=== PATIENT | female | born 1995 | race African-American/Black ===

== ENCOUNTER 2022-11-15 14:30 | Inpatient (IN) | payer BC, OTHER ==
[2022-11-15] VITALS (7 sets, daily range): BP systolic 105–140; BP diastolic 73–111
[~2022-11-15] VITALS: Ht 154.9 cm; Wt 102.5 kg
[2022-11-15 15:28] LABS: Basophils # (auto) 0.1 10 ^3/uL (0-0.2); Basophils % (auto) 0.5 % (0.0-2.0); Eosinophils # (auto) 0 10 ^3/uL (0-0.8); Hematocrit 43.3 % (36.0-46.0); Hemoglobin 14.6 g/dL (12.2-16.2); Lymphocytes # (auto) 1.1 10 ^3/uL (0.4-5.4); Lymphocytes % (auto) 7.7 % (10.0-50.0); Mean Corpuscular Hemoglobin 30.8 pg (28.0-32.0); Mean Corpuscular Hgb Conc. 33.8 g/dL (32.0-36.0); Mean Corpuscular Volume 91.2 fL (80.0-100.0); Monocytes # (auto) 0.5 10 ^3/uL (0-1.3); Monocytes % (auto) 3.3 % (0.0-12.0); Neutrophils # (auto) 12.7 10 ^3/uL (1.6-8.6); Neutrophils % (auto) 88.5 % (37.0-80.0); Nucleated Red Blood Cells % 0.3 %; Red Blood Cells 4.75 10^6/uL (4.0-5.20); Red Cell Distribution Width 13.2 % (11.8-14.3); White Blood Cell 14.4 10^3/uL (4.4-10.8)
[2022-11-15] MEDS ORDERED: SODIUM CHLORIDE 0.9% 1,000 ML IV ONE (15:45)
[2022-11-15] MEDS ORDERED: NITROGLYCERIN 0.4 MG SL TAB SL ONE (15:45)
[2022-11-15 15:58] LABS: Albumin 3.8 g/dL (3.4-5.0); Calcium 8.8 mg/dL (8.5-10.1); Potassium 4.6 mmol/L (3.5-5.1)
[2022-11-15 16:03] LABS: BUN/Creatinine Ratio 12.5 (10.0-20.0); Bilirubin, Total 0.4 mg/dL (0.2-1.0)
[2022-11-15] MEDS ORDERED: HYDROcodone-ACET 5/325MG TAB PO PRN (16:30)
[2022-11-15] MEDS ORDERED: MORPHINE SULFATE INJ 2 MG/ml SYRG IV PRN (16:30)
[2022-11-15] MEDS ORDERED: HEPARIN SODIUM (PORCINE) 5000 UNITS/ML 1ML VIAL IV ONE (16:30)
[2022-11-15] MEDS ORDERED: NITROGLYCERIN 0.4 MG SL TAB SL PRN (16:30)
[2022-11-15] MEDS ORDERED: ONDANSETRON HCL 4 MG/2 ML VIAL IV PRN (16:30)
[2022-11-15] MEDS ORDERED: LIDOCAINE 2%HCL (LOCAL ANESTH.) INJ 20ML MDV ONE (16:47)
[2022-11-15] MEDS ORDERED: IODIXANOL 320MG/ML 100ML BTL IV ONE ×2 (16:47→17:49)
[2022-11-15 16:50] LABS: INR 0.94 (0.9-1.15); Partial Thromboplastin Time 27.7 sec (24.6-33.4)
[2022-11-15] MEDS ORDERED: VERAPAMIL 2.5MG/ML INJ 2ML VIAL IV ONE (16:50)
[2022-11-15] MEDS ORDERED: fentaNYL CITRATE 100 MCG/2 ML VL ONE (16:50)
[2022-11-15] MEDS ORDERED: HEPARIN SODIUM (PORCINE) 5000 UNITS/ML 1ML VIAL ONE (16:50)
[2022-11-15] MEDS ORDERED: ANGIOMAX 250 MG VIAL IV ONE (16:50)
[2022-11-15] MEDS ORDERED: SODIUM CHL 0.9% 50 ML ONE (16:51)
[2022-11-15] MEDS ORDERED: MIDAZOLAM HCL 2MG/2ML 2ml VIAL (1mg/ml) ONE (16:51)
[2022-11-15 17:10] LABS: Cholesterol 227 mg/dL (< 200)
[2022-11-15 17:12] LABS: HDL Cholesterol 53 mg/dL (40-59); LDL Cholesterol 165 mg/dL (< 100); Triglycerides 113 mg/dL (< 150)
[2022-11-15] MEDS ORDERED: ADENOSINE 6 MG/2 ML INJ IV ONE (17:33)
[2022-11-15] MEDS ORDERED: EPTIFIBATIDE INJ (2MG/ML) 10ML VIAL IV ONE ×2 (17:39→17:40)
[2022-11-15] MEDS ORDERED: TICAGRELOR 90 MG TAB ONE (17:53)
[2022-11-15] MEDS ORDERED: EPTIFIBATIDE DRIP(0.75MG/ML) 100 ML IV ONE ×2 (18:12→18:45)
[2022-11-15] MEDS ORDERED: FUROSEMIDE INJECTION 10 ML ONE (18:31)
[2022-11-15] MEDS ORDERED: FUROSEMIDE 100 MG/10ML VIAL IV ONE (18:45)
[2022-11-15] MEDS: FUROSEMIDE 40 MG/4 ML VIAL IV SCH (20:41)
[2022-11-15] MEDS: SODIUM CHLOR 0.9% PF (SALINE LOCK) 10ML VIAL/SYR IV SCH (20:45)
[2022-11-15] MEDS: MORPHINE SULFATE INJ 2 MG/ml SYRG IV PRN (20:46)
[2022-11-15] MEDS: CEFEPIME 1GM/ 50ML 50 ML IV SCH (21:15)
[2022-11-15] MEDS ORDERED: ESCI1TAB36 PO (21:52)
[2022-11-15] MEDS ORDERED: ATORVASTATIN 20 MG TAB PO SCH (22:00)
[2022-11-16 01:17] LABS: Urine Bacteria NONE SEEN /hpf (None Seen); Urine Blood Negative /uL (Negative); Urine Specific Gravity 1.016 (1.001-1.035); Urine WBC 1 /hpf (0 - 5)
[2022-11-16 02:24] LABS: Amphetamine Screen, Urine NEGATIVE (NEGATIVE); Barbiturate Scree,Urine NEGATIVE (NEGATIVE); Benzodiazephine Screen, Urine POSITIVE (NEGATIVE); Cannabinoid Screen, Urine POSITIVE (NEGATIVE); Cocaine Screen, Urine NEGATIVE (NEGATIVE); Opiate Scree,Urine NEGATIVE (NEGATIVE); Phencyclidine Screen, Urine NEGATIVE (NEGATIVE)
[2022-11-16 03:26] LABS: Alcohol, Urine < 3.0 mg/dL (0-10)
[2022-11-16] MEDS: EPTIFIBATIDE DRIP(0.75MG/ML) 100 ML IV SCH ×3 (04:27→12:09)
[2022-11-16] MEDS: MORPHINE SULFATE INJ 2 MG/ml SYRG IV PRN ×2 (04:41→23:27)
[2022-11-16 05:00] VITALS: BP 119/79
[2022-11-16 06:08] LABS: Albumin 3.7 g/dL (3.4-5.0); Calcium 8.6 mg/dL (8.5-10.1); Potassium 3.5 mmol/L (3.5-5.1)
[2022-11-16 06:12] LABS: BUN/Creatinine Ratio 16.3 (10.0-20.0); Bilirubin, Total 0.9 mg/dL (0.2-1.0); Total Protein 8.4 g/dL (6.4-8.2)
[2022-11-16] MEDS: CEFEPIME 1GM/ 50ML 50 ML IV SCH ×3 (06:43→21:14)
[2022-11-16] MEDS: SODIUM CHLOR 0.9% PF (SALINE LOCK) 10ML VIAL/SYR IV SCH ×3 (06:43→21:10)
[2022-11-16 06:56] LABS: Basophils # (auto) 0 10 ^3/uL (0-0.2); Basophils % (auto) 0.1 % (0.0-2.0); Eosinophils # (auto) 0 10 ^3/uL (0-0.8); Hematocrit 44.3 % (36.0-46.0); Hemoglobin 15.5 g/dL (12.2-16.2); Lymphocytes # (auto) 1.3 10 ^3/uL (0.4-5.4); Lymphocytes % (auto) 7.1 % (10.0-50.0); Mean Corpuscular Hemoglobin 31.6 pg (28.0-32.0); Mean Corpuscular Hgb Conc. 34.9 g/dL (32.0-36.0); Mean Corpuscular Volume 90.7 fL (80.0-100.0); Monocytes # (auto) 1.3 10 ^3/uL (0-1.3); Monocytes % (auto) 7.4 % (0.0-12.0); Neutrophils # (auto) 15.2 10 ^3/uL (1.6-8.6); Neutrophils % (auto) 85.4 % (37.0-80.0); Nucleated Red Blood Cells % 0.3 %; Red Blood Cells 4.89 10^6/uL (4.0-5.20); Red Cell Distribution Width 13.3 % (11.8-14.3); White Blood Cell 17.8 10^3/uL (4.4-10.8)
[2022-11-16 09:00] VITALS: BP 111/74
[2022-11-16] MEDS: ASPirin 81 mg TAB PO SCH (09:30)
[2022-11-16] MEDS: METOPROLOL SUCCINATE XL 50 MG TAB PO SCH (09:32)
[2022-11-16] MEDS: TICAGRELOR 90 MG TAB PO SCH ×2 (09:33→21:11)
[2022-11-16] MEDS: FUROSEMIDE 40 MG/4 ML VIAL IV SCH ×2 (09:35→21:20)
[2022-11-16] MEDS: NICOTINE 7MG/24HR TOPICAL PATCH TD SCH (09:35)
[2022-11-16 13:00] VITALS: BP 111/62
[2022-11-16 17:00] VITALS: BP 112/59
[2022-11-16] MEDS: CITALOPRAM HYDROBR 20 MG TAB PO SCH (21:11)
[2022-11-16 22:00] VITALS: BP 105/58
[2022-11-17 05:00] VITALS: BP 93/54
[2022-11-17] MEDS: CEFEPIME 1GM/ 50ML 50 ML IV SCH ×3 (05:14→22:05)
[2022-11-17] MEDS: SODIUM CHLOR 0.9% PF (SALINE LOCK) 10ML VIAL/SYR IV SCH ×3 (05:21→22:14)
[2022-11-17 09:00] VITALS: BP 107/58
[2022-11-17] MEDS: ASPirin 81 mg TAB PO SCH (10:14)
[2022-11-17] MEDS: TICAGRELOR 90 MG TAB PO SCH ×2 (10:15→22:13)
[2022-11-17] MEDS: FUROSEMIDE 40 MG/4 ML VIAL IV SCH ×2 (10:15→22:00)
[2022-11-17] MEDS: NICOTINE 7MG/24HR TOPICAL PATCH TD SCH (10:16)
[2022-11-17] MEDS: METOPROLOL SUCCINATE XL 50 MG TAB PO SCH (10:16)
[2022-11-17] MEDS: Ensure HIGH Protein Chocolate 8oz Bottle PO SCH ×2 (12:12→18:13)
[2022-11-17 13:00] VITALS: BP 115/70
[2022-11-17 17:00] VITALS: BP 98/53
[2022-11-17 20:00] VITALS: BP 100/58
[2022-11-17 22:00] VITALS: BP 100/58
[2022-11-17] MEDS: ACETAMINOPHEN 325 MG TAB PO PRN (22:12)
[2022-11-17] MEDS: CITALOPRAM HYDROBR 20 MG TAB PO SCH (22:13)
[2022-11-18] VITALS (8 sets, daily range): BP systolic 90–101; BP diastolic 54–67
[2022-11-18] MEDS: CEFEPIME 1GM/ 50ML 50 ML IV SCH ×3 (06:27→21:49)
[2022-11-18] MEDS: SODIUM CHLOR 0.9% PF (SALINE LOCK) 10ML VIAL/SYR IV SCH ×3 (06:28→21:33)
[2022-11-18] MEDS: ASPirin 81 mg TAB PO SCH (09:29)
[2022-11-18] MEDS: NICOTINE 7MG/24HR TOPICAL PATCH TD SCH (09:29)
[2022-11-18] MEDS: TICAGRELOR 90 MG TAB PO SCH ×2 (09:29→21:31)
[2022-11-18] MEDS: METOPROLOL SUCCINATE XL 50 MG TAB PO SCH (09:30)
[2022-11-18] MEDS: FUROSEMIDE 40 MG/4 ML VIAL IV SCH (09:30)
[2022-11-18] MEDS: Ensure HIGH Protein Chocolate 8oz Bottle PO SCH ×3 (09:31→18:15)
[2022-11-18 14:36] LABS: Basophils # (auto) 0.1 10 ^3/uL (0-0.2); Basophils % (auto) 0.6 % (0.0-2.0); Eosinophils # (auto) 0.2 10 ^3/uL (0-0.8); Eosinophils % (auto) 1.4 % (0.0-7.0); Hematocrit 46.6 % (36.0-46.0); Hemoglobin 15.7 g/dL (12.2-16.2); Lymphocytes # (auto) 2.7 10 ^3/uL (0.4-5.4); Lymphocytes % (auto) 25.6 % (10.0-50.0); Mean Corpuscular Hemoglobin 30.6 pg (28.0-32.0); Mean Corpuscular Hgb Conc. 33.6 g/dL (32.0-36.0); Mean Corpuscular Volume 91.2 fL (80.0-100.0); Monocytes # (auto) 0.7 10 ^3/uL (0-1.3); Monocytes % (auto) 6.7 % (0.0-12.0); Neutrophils # (auto) 6.8 10 ^3/uL (1.6-8.6); Neutrophils % (auto) 65.7 % (37.0-80.0); Nucleated Red Blood Cells % 0.2 %; Red Blood Cells 5.11 10^6/uL (4.0-5.20); Red Cell Distribution Width 13.4 % (11.8-14.3); White Blood Cell 10.4 10^3/uL (4.4-10.8)
[2022-11-18 14:54] LABS: Calcium 8.6 mg/dL (8.5-10.1); Potassium 3.1 mmol/L (3.5-5.1)
[2022-11-18 14:56] LABS: BUN/Creatinine Ratio 22.7 (10.0-20.0)
[2022-11-18] MEDS ORDERED: POTASSIUM CHL 20 Meq TABLET PO ONE (19:45)
[2022-11-18] MEDS ORDERED: SODIUM CHLORIDE 0.9% 250 ML IV ONE (21:00)
[2022-11-18] MEDS: CITALOPRAM HYDROBR 20 MG TAB PO SCH (21:31)
[2022-11-19] VITALS (7 sets, daily range): BP systolic 88–110; BP diastolic 46–74
[2022-11-19] MEDS: CEFEPIME 1GM/ 50ML 50 ML IV SCH (05:52)
[2022-11-19] MEDS: SODIUM CHLOR 0.9% PF (SALINE LOCK) 10ML VIAL/SYR IV SCH ×3 (05:55→21:31)
[2022-11-19] MEDS: METOPROLOL SUCCINATE XL 50 MG TAB PO SCH (10:00)
[2022-11-19] MEDS: TICAGRELOR 90 MG TAB PO SCH ×2 (10:37→21:30)
[2022-11-19] MEDS: ASPirin 81 mg TAB PO SCH (10:37)
[2022-11-19] MEDS: NICOTINE 7MG/24HR TOPICAL PATCH TD SCH (10:37)
[2022-11-19] MEDS: Ensure HIGH Protein Chocolate 8oz Bottle PO SCH ×3 (12:33→18:06)
[2022-11-19 13:56] LABS: BUN/Creatinine Ratio 17.4 (10.0-20.0); Calcium 8.5 mg/dL (8.5-10.1)
[2022-11-19] MEDS ORDERED: MIDODRINE HCL 10 MG TAB PO SCH (18:00)
[2022-11-19] MEDS: MIDODRINE HCL 10 MG TAB PO SCH (18:05)
[2022-11-19] MEDS: CITALOPRAM HYDROBR 20 MG TAB PO SCH (21:31)
[2022-11-20 05:00] VITALS: BP 91/57
[2022-11-20] MEDS: MIDODRINE HCL 10 MG TAB PO SCH ×2 (05:18→18:00)
[2022-11-20] MEDS: SODIUM CHLOR 0.9% PF (SALINE LOCK) 10ML VIAL/SYR IV SCH ×2 (05:18→14:57)
[2022-11-20 05:28] LABS: BUN/Creatinine Ratio 18.8 (10.0-20.0); Calcium 8.6 mg/dL (8.5-10.1); Potassium 3.5 mmol/L (3.5-5.1)
[2022-11-20] MEDS: ACETAMINOPHEN 325 MG TAB PO PRN (07:51)
[2022-11-20] MEDS: Ensure HIGH Protein Chocolate 8oz Bottle PO SCH ×3 (07:56→18:00)
[2022-11-20 08:00] VITALS: BP 96/60
[2022-11-20] MEDS: NICOTINE 7MG/24HR TOPICAL PATCH TD SCH (10:00)
[2022-11-20] MEDS: TICAGRELOR 90 MG TAB PO SCH (10:36)
[2022-11-20] MEDS: METOPROLOL SUCCINATE XL 50 MG TAB PO SCH (10:36)
[2022-11-20] MEDS: ASPirin 81 mg TAB PO SCH (10:36)
[2022-11-20 11:33] LABS: Potassium 3.8 mmol/L (3.5-5.1)
[2022-11-20 11:41] LABS: BUN/Creatinine Ratio 17.6 (10.0-20.0); Calcium 8.5 mg/dL (8.5-10.1)
[2022-11-20 12:00] VITALS: BP 91/60
[2022-11-20] MEDS ORDERED: MID10T PO (14:28)
[2022-11-20] MEDS ORDERED: ASPI-325 PO ×2 (14:28→15:09)
[2022-11-20] MEDS ORDERED: METO-6 PO ×2 (14:28→15:09)
[2022-11-20] MEDS ORDERED: TICA90TA PO ×2 (14:28→15:09)
[2022-11-20] MEDS ORDERED: MIDO5TAB4 PO (15:09)
[2022-11-20 16:00] VITALS: BP 99/62
[2022-11-20 16:15] VITALS: BP 99/62
== END 2022-11-20 18:30 | disposition home or self-care (01) | DRG 246 ==
LOC: ER 14:30 → EDBD 14:30 → TELE 16:33 → TELE-CENTR 19:36
PROVIDERS: ADMIT Registered Nurse; ATTEND Internal Medicine
PROC: B211YZZ Fluoroscopy of Multiple Coronary Arteries using Other Contrast (ICD-10-PCS; principal; 2022-11-15)
PROC: 027034Z Dilation of Coronary Artery, One Artery with Drug-eluting Intraluminal Device, Percutaneous Approach (ICD-10-PCS; 2022-11-15)
PROC: 4A023N7 Measurement of Cardiac Sampling and Pressure, Left Heart, Percutaneous Approach (ICD-10-PCS; 2022-11-15)
PROC: B215YZZ Fluoroscopy of Left Heart using Other Contrast (ICD-10-PCS; 2022-11-15)
DX: I21.4 Non-ST elevation (NSTEMI) myocardial infarction (principal); I50.21 Acute systolic (congestive) heart failure; N30.00 Acute cystitis without hematuria; Z68.41 Body mass index [BMI] 40.0-44.9, adult; E55.9 Vitamin D deficiency, unspecified; E66.01 Morbid (severe) obesity due to excess calories; I25.10 Atherosclerotic heart disease of native coronary artery without angina pectoris; Z88.5 Allergy status to narcotic agent; Z88.0 Allergy status to penicillin; Z82.49 Family history of ischemic heart disease and other diseases of the circulatory system; Z72.0 Tobacco use; Z71.6 Tobacco abuse counseling
CPT/HCPCS: 36415; 71045; 80048; 80053; 80061; 80307; 81001; 82306; 83036; 83880; 84443; 84484; 84702; 85025; 85379; 85610; 85730; 86850; 86900; 86901; 87040; 87086; 92928; 93005; 93306; 93458; 96365; 96366; 96375; 99152; 99153; G0378; J0153; J2250; J2405; Q9967

== ENCOUNTER 2023-01-28 11:36 | Emergency (ER) | payer BC ==
[~2023-01-28] VITALS: Ht 152.4 cm; Wt 100.0 kg
[~2023-01-28 11:36] MED LIST: ASPI-325 PO; ESCI1TAB36 PO; METO-6 PO; MID10T PO; MIDO5TAB4 PO; TICA90TA PO
[2023-01-28 11:44] VITALS: BP 120/74; RESP 16; O2SAT 100
[2023-01-28 11:48] LABS: Basophils # (auto) 0.2 10 ^3/uL (0-0.2); Basophils % (auto) 2.8 % (0.0-2.0); Eosinophils # (auto) 0.3 10 ^3/uL (0-0.8); Eosinophils % (auto) 5.1 % (0.0-7.0); Hemoglobin 14.9 g/dL (12.2-16.2); Lymphocytes # (auto) 2.8 10 ^3/uL (0.4-5.4); Lymphocytes % (auto) 41.9 % (10.0-50.0); Mean Corpuscular Hemoglobin 30.9 pg (28.0-32.0); Mean Corpuscular Hgb Conc. 33.9 g/dL (32.0-36.0); Mean Corpuscular Volume 91.2 fL (80.0-100.0); Monocytes # (auto) 0.4 10 ^3/uL (0-1.3); Monocytes % (auto) 6.5 % (0.0-12.0); Neutrophils # (auto) 2.9 10 ^3/uL (1.6-8.6); Neutrophils % (auto) 43.7 % (37.0-80.0); Nucleated Red Blood Cells % 0.3 %; Red Blood Cells 4.82 10^6/uL (4.0-5.20); Red Cell Distribution Width 13.3 % (11.8-14.3); White Blood Cell 6.7 10^3/uL (4.4-10.8)
[2023-01-28 12:18] LABS: Albumin 3.4 g/dL (3.4-5.0); Calcium 8.2 mg/dL (8.5-10.1); Potassium 4.8 mmol/L (3.5-5.1)
[2023-01-28 12:21] LABS: BUN/Creatinine Ratio 11.5 (10.0-20.0); Bilirubin, Total 0.4 mg/dL (0.2-1.0); Total Protein 7.1 g/dL (6.4-8.2)
[2023-01-28 12:36] VITALS: PULSE 90
== END 2023-01-28 17:52 | disposition left against medical advice (07) ==
LOC: ER 11:36
DX: I24.9 Acute ischemic heart disease, unspecified (principal); I10 Essential (primary) hypertension; I25.2 Old myocardial infarction; Z88.6 Allergy status to analgesic agent; Z91.013 Allergy to seafood; Z53.29 Procedure and treatment not carried out because of patient's decision for other reasons
CPT/HCPCS: 36415; 71045; 80053; 84484; 85025; 93005